=== PATIENT | male | born 1950 | race Caucasian/White ===

== ENCOUNTER 2017-12-29 14:25 | Outpatient (CLI) | payer MEDICARE, BC ==
--- NOTE | 2017-12-30 10:37 | MRI ---
PROSTATE MRI WITH AND WITHOUT CONTRAST: HISTORY: Prostate cancer. Radiation treatment planning. COMPARISON: None. TECHNIQUE: Multiplanar, multisequence MR images were obtained of the prostate with and without IV contrast. FINDINGS: There is hyperplasia of the central bland, consistent with BPH. There is an area of subtle low T2 si gnal in the left peripheral zone of the prostate, in the region of the mid gland, extending toward th e apex. This lesions measures 1.2 cm in greatest dimension. This demonstrates indistinct low ADC si gnal, without evidence of restricted diffusion. However, the diffusion and AC map images are limited secondary to an air bubble in the adjacent rectum, which is producing artifact. No other suspicious areas are seen within the peripheral zone or central gland. The seminal vesicles are unremarkable. The neurovascular bundles are intact, but the left neurovascu lar bundle is in the near vicinity to the left sided prostate lesion. No marrow signal abnormality is seen. No pelvic adenopathy is present. IMPRESSION: PI-RADS category 2-Low likelihood that a clinically significant cancer is present. POS: OFF
== END 2017-12-29 14:26 | disposition home or self-care (01) ==
LOC: TBSIIMAG 14:25
PROVIDERS: ATTEND Radiology Radiation Oncology
DX: C61 Malignant neoplasm of prostate (principal)
CPT/HCPCS: 72197; 82565